=== PATIENT | male | born 1965 | race Caucasian/White ===

== ENCOUNTER 2019-06-12 16:00 | Inpatient (IN) | payer OTHER ==
[~2019-06-12] VITALS: Ht 177.8 cm; Wt 73.3 kg
--- NOTE | 2019-06-12 16:09 | NUR ---
KALYAN PATEL FROM [facility] PT HAD PROSTATE REMOVED THREE MO AGO DO TO [facility] HE HAS NOT BEEN HAPPY WITH [facility] SINCE AND TODAY CO PAIN AND SWELLING IN THE L LOWER ABD AND GROIN THAT STARTED 3 DAYS AGO DOES REPORT A FEVER DENIES OTHER HX OR TAKING ANY MEDS WAS MEDICATED TAX INVESTIGATOR W 1 DILAUDID AND 50 FENT X 2 ENROUTE IV R ARM TAX INVESTIGATOR
--- NOTE | 2019-06-12 16:45 | NUR ---
ERP TO THE BS
--- NOTE | 2019-06-12 17:29 | NUR ---
WAITINING ON ORDERS
[2019-06-12] MEDS ORDERED: SODIUM CHLORIDE 0.9% 1,000 ML IV ONE (17:46)
[2019-06-12] MEDS ORDERED: SODIUM CHLORIDE FLUSH 10ML SYR IVF PRN (18:00)
[2019-06-12] MEDS: PLEASE ENTER ALLERGIES MC SCH ×2 (18:17→18:18)
[2019-06-12] MEDS ORDERED: PIPERACILLIN/TAZO/PMX 3.375GM 50 ML ONE (18:21)
[2019-06-12] MEDS: SODIUM CHLORIDE 0.9% 1,000 ML IV SCH (18:26)
[2019-06-12] MEDS ORDERED: ONDANSETRON 2MG/ML, 2ML IVPush PRN (18:30)
[2019-06-12] MEDS ORDERED: BISACODYL 10 MG SUPP PR PRN (18:30)
[2019-06-12] MEDS ORDERED: ACETAMINOPHEN 325 MG TABLET PO PRN (18:30)
[2019-06-12] MEDS ORDERED: VANCOMYCIN PER PHARMACY MC PRN (18:30)
[2019-06-12] MEDS ORDERED: POLYETHYLENE GLYCOL 17 GM PACKET PO PRN (18:30)
[2019-06-12] MEDS: PIPERACILLIN/TAZO/PMX 3.375GM 50 ML IV SCH (18:42)
--- NOTE | 2019-06-12 18:55 | NUR ---
REPORT REC, VS UPDATED
[2019-06-12] MEDS ORDERED: VANCOMYCIN 1,500 MG in SODIUM CHLORIDE 0.9% 250 ML IV ONE (19:30)
[2019-06-12] MEDS ORDERED: PHARMACOKINETIC MONITORING MC PRN (19:30)
[2019-06-12] MEDS ORDERED: PHARMACOKINETIC CONSULTATION MC ONE (19:30)
[2019-06-12 19:50] VITALS: BP 127/72
[2019-06-12] MEDS: morphine SULFATE 10 MG/ML, 1ML IVPush PRN (20:43)
[2019-06-12] MEDS: NICOTINE 21 MG/24 HR PATCH.TD24 TD SCH (20:43)
[2019-06-13] MEDS: PIPERACILLIN/TAZO/PMX 3.375GM 50 ML IV SCH ×4 (00:36→19:50)
[2019-06-13] MEDS: morphine SULFATE 10 MG/ML, 1ML IVPush PRN ×4 (00:36→19:50)
[2019-06-13 01:05] VITALS: BP 106/73
[2019-06-13] MEDS: SODIUM CHLORIDE 0.9% 1,000 ML IV SCH ×2 (03:47→21:30)
[2019-06-13 06:41] LABS: MEAN CORPUSCULAR HEMOGLOBIN 31.3 pg (27.5-34.5); MEAN CORPUSCULAR HGB CONC 33.6 g/dL (33.2-36.2); MEAN PLATELET VOLUME 8.1 fL (7.4-10.4); PLATELET COUNT 187 x10^3/uL (130-400); RED BLOOD COUNT 4.12 x10^6/uL (4.38-5.82); RED CELL DISTRIBUTION WIDTH 12.7 % (9.4-14.8)
[2019-06-13 06:51] LABS: ALBUMIN 2.1 g/dL (3.4-5.0); ANION GAP 8 mmol/L (5-15); CALCIUM 7.9 mg/dL (8.5-10.1); CHLORIDE 103 mmol/L (98-107)
[2019-06-13 06:54] LABS: ALANINE AMINOTRANSFERASE 29 U/L (12-78); ALKALINE PHOSPHATASE 71 U/L (45-117); BILIRUBIN,TOTAL 0.6 mg/dL (0.2-1.0); CREATININE 0.91 mg/dL (0.7-1.3); TOTAL PROTEIN 6.3 g/dL (6.4-8.2)
[2019-06-13 07:23] LABS: BASOPHILS # (AUTO) 0.01 x10^3/uL (0-0.1); BASOPHILS % (AUTO) 0 % (0-1); EOSINOPHILS # (AUTO) 0.15 x10^3/uL (0-0.4); EOSINOPHILS % (AUTO) 1 % (1-7); LYMPHOCYTES # (AUTO) 0.67 x10^3/uL (1-3.4); LYMPHOCYTES % (AUTO) 3 % (22-44); MD SCAN; MONOCYTES # (AUTO) 1.54 x10^3/uL (0.2-0.8); MONOCYTES % (AUTO) 8 % (2-9); NEUTROPHILS # (AUTO) 17.53 x10^3/uL (1.8-6.8); NEUTROPHILS % (AUTO) 88 % (42-75)
[2019-06-13 07:29] VITALS: BP 107/63
[2019-06-13] MEDS ORDERED: FLUMAZENIL 0.1 MG/1 ML, 5ML ONE (08:04)
[2019-06-13] MEDS ORDERED: NALOXONE 1 MG/ML, 2ML ONE (08:04)
[2019-06-13] MEDS ORDERED: MIDAZOLAM 1 MG/ML, 5ML ONE ×2 (08:04)
[2019-06-13] MEDS ORDERED: FENTANYL PF 100 MCG/2ML ONE (08:04)
[2019-06-13] MEDS ORDERED: LIDOCAINE 1%, 20ML ONE (08:09)
[2019-06-13] MEDS: SENNA/DOCUSATE TABLET PO SCH (09:00)
[2019-06-13] MEDS: POTASSIUM CHLORIDE 20 MEQ TAB.ER.PRT PO SCH ×2 (09:39→19:49)
[2019-06-13] MEDS: VANCOMYCIN 1,500 MG in SODIUM CHLORIDE 0.9% 250 ML IV SCH (14:28)
[2019-06-13 15:27] VITALS: BP 118/77
[2019-06-13 19:34] VITALS: BP 111/68
[2019-06-13] MEDS: NICOTINE 21 MG/24 HR PATCH.TD24 TD SCH (19:49)
[2019-06-13] MEDS: HEPARIN 5,000 UNITS/ML, 1ML SQ SCH (19:55)
[2019-06-14] MEDS: morphine SULFATE 10 MG/ML, 1ML IVPush PRN ×4 (00:45→12:11)
[2019-06-14] MEDS: PIPERACILLIN/TAZO/PMX 3.375GM 50 ML IV SCH ×4 (01:29→19:56)
[2019-06-14 01:47] VITALS: BP 109/66
[2019-06-14] MEDS: HEPARIN 5,000 UNITS/ML, 1ML SQ SCH ×3 (04:32→21:00)
[2019-06-14] MEDS: SODIUM CHLORIDE 0.9% 1,000 ML IV SCH ×2 (05:38→17:22)
[2019-06-14 06:07] LABS: ANION GAP 7 mmol/L (5-15); CALCIUM 8.1 mg/dL (8.5-10.1); CHLORIDE 106 mmol/L (98-107)
[2019-06-14 06:09] LABS: BASOPHILS # (AUTO) 0.02 x10^3/uL (0-0.1); BASOPHILS % (AUTO) 0 % (0-1); EOSINOPHILS # (AUTO) 0.09 x10^3/uL (0-0.4); EOSINOPHILS % (AUTO) 1 % (1-7); LYMPHOCYTES # (AUTO) 0.66 x10^3/uL (1-3.4); LYMPHOCYTES % (AUTO) 7 % (22-44); MD NO; MEAN CORPUSCULAR HEMOGLOBIN 30.9 pg (27.5-34.5); MEAN CORPUSCULAR HGB CONC 33.3 g/dL (33.2-36.2); MEAN CORPUSCULAR VOLUME 92.8 fL (81-97); MEAN PLATELET VOLUME 7.5 fL (7.4-10.4); MONOCYTES # (AUTO) 1.04 x10^3/uL (0.2-0.8); MONOCYTES % (AUTO) 11 % (2-9); NEUTROPHILS # (AUTO) 7.36 x10^3/uL (1.8-6.8); NEUTROPHILS % (AUTO) 80 % (42-75); PLATELET COUNT 201 x10^3/uL (130-400); RED BLOOD COUNT 4.05 x10^6/uL (4.38-5.82); RED CELL DISTRIBUTION WIDTH 12.9 % (9.4-14.8)
[2019-06-14 06:12] LABS: CREATININE 0.82 mg/dL (0.7-1.3)
[2019-06-14 06:13] LABS: ALANINE AMINOTRANSFERASE 65 U/L (12-78); ALKALINE PHOSPHATASE 75 U/L (45-117); BILIRUBIN,TOTAL 0.4 mg/dL (0.2-1.0); TOTAL PROTEIN 6.2 g/dL (6.4-8.2)
[2019-06-14] MEDS: POTASSIUM CHLORIDE 20 MEQ TAB.ER.PRT PO SCH ×2 (07:48→17:22)
[2019-06-14] MEDS: SENNA/DOCUSATE TABLET PO SCH (07:48)
[2019-06-14 08:50] VITALS: BP 115/74
[2019-06-14] MEDS: VANCOMYCIN 1,500 MG in SODIUM CHLORIDE 0.9% 250 ML IV SCH (09:07)
[2019-06-14 15:55] VITALS: BP 129/73
[2019-06-14] MEDS: NICOTINE 21 MG/24 HR PATCH.TD24 TD SCH (19:29)
[2019-06-14 19:58] VITALS: BP 113/64
[2019-06-15] MEDS: PIPERACILLIN/TAZO/PMX 3.375GM 50 ML IV SCH (02:12)
[2019-06-15] MEDS: morphine SULFATE 10 MG/ML, 1ML IVPush PRN ×2 (02:20→19:29)
[2019-06-15 02:55] VITALS: BP 125/70
[2019-06-15] MEDS: VANCOMYCIN 1,500 MG in SODIUM CHLORIDE 0.9% 250 ML IV SCH (03:39)
[2019-06-15] MEDS: HEPARIN 5,000 UNITS/ML, 1ML SQ SCH ×4 (03:41→23:52)
[2019-06-15] MEDS: SODIUM CHLORIDE 0.9% 1,000 ML IV SCH (07:22)
[2019-06-15 07:30] VITALS: BP 129/64
[2019-06-15] MEDS: AMPICILLIN/SULBACTAM 3 GM in SODIUM CHLORIDE 0.9% 100 ML IV SCH ×3 (08:00→19:02)
[2019-06-15] MEDS: POTASSIUM CHLORIDE 20 MEQ TAB.ER.PRT PO SCH ×2 (08:12→08:13)
[2019-06-15] MEDS: SENNA/DOCUSATE TABLET PO SCH (08:12)
[2019-06-15 13:07] VITALS: BP 122/68
[2019-06-15] MEDS: NICOTINE 21 MG/24 HR PATCH.TD24 TD SCH (18:35)
[2019-06-15 18:44] VITALS: BP 126/69
[2019-06-16 02:04] VITALS: BP 132/70
[2019-06-16] MEDS: AMPICILLIN/SULBACTAM 3 GM in SODIUM CHLORIDE 0.9% 100 ML IV SCH ×4 (02:06→21:18)
[2019-06-16] MEDS: morphine SULFATE 10 MG/ML, 1ML IVPush PRN (03:01)
[2019-06-16 05:53] LABS: BASOPHILS # (AUTO) 0.03 x10^3/uL (0-0.1); BASOPHILS % (AUTO) 0 % (0-1); EOSINOPHILS # (AUTO) 0.12 x10^3/uL (0-0.4); EOSINOPHILS % (AUTO) 1 % (1-7); LYMPHOCYTES # (AUTO) 0.94 x10^3/uL (1-3.4); LYMPHOCYTES % (AUTO) 9 % (22-44); MD NO; MEAN CORPUSCULAR HEMOGLOBIN 30.8 pg (27.5-34.5); MEAN CORPUSCULAR HGB CONC 33.5 g/dL (33.2-36.2); MEAN CORPUSCULAR VOLUME 91.9 fL (81-97); MEAN PLATELET VOLUME 7.7 fL (7.4-10.4); MONOCYTES % (AUTO) 12 % (2-9); NEUTROPHILS # (AUTO) 8.42 x10^3/uL (1.8-6.8); NEUTROPHILS % (AUTO) 78 % (42-75); PLATELET COUNT 326 x10^3/uL (130-400); RED BLOOD COUNT 4.09 x10^6/uL (4.38-5.82); RED CELL DISTRIBUTION WIDTH 12.8 % (9.4-14.8)
[2019-06-16 06:00] LABS: ALBUMIN 2.2 g/dL (3.4-5.0); ANION GAP 7 mmol/L (5-15); CALCIUM 8.4 mg/dL (8.5-10.1); CHLORIDE 103 mmol/L (98-107)
[2019-06-16 06:05] LABS: ALANINE AMINOTRANSFERASE 75 U/L (12-78); ALKALINE PHOSPHATASE 81 U/L (45-117); BILIRUBIN,TOTAL 0.6 mg/dL (0.2-1.0); CREATININE 0.82 mg/dL (0.7-1.3); TOTAL PROTEIN 6.4 g/dL (6.4-8.2)
[2019-06-16 06:35] VITALS: BP 128/62
[2019-06-16] MEDS: SENNA/DOCUSATE TABLET PO SCH (08:05)
[2019-06-16] MEDS: HEPARIN 5,000 UNITS/ML, 1ML SQ SCH ×2 (12:48→21:00)
[2019-06-16 13:17] VITALS: BP 108/63
[2019-06-16 18:40] VITALS: BP 127/72
[2019-06-16] MEDS: NICOTINE 21 MG/24 HR PATCH.TD24 TD SCH (19:30)
[2019-06-17] MEDS: HEPARIN 5,000 UNITS/ML, 1ML SQ SCH ×3 (02:08→19:45)
[2019-06-17] MEDS: AMPICILLIN/SULBACTAM 3 GM in SODIUM CHLORIDE 0.9% 100 ML IV SCH ×4 (02:13→19:41)
[2019-06-17 02:22] VITALS: BP 130/70
[2019-06-17] MEDS: OXYcodone/APAP 5/325MG TABLET PO PRN ×4 (02:23→19:50)
[2019-06-17 07:04] VITALS: BP 115/73
[2019-06-17] MEDS: SENNA/DOCUSATE TABLET PO SCH (07:59)
[2019-06-17 13:01] VITALS: BP 119/76
[2019-06-17 19:27] VITALS: BP 107/66
[2019-06-17] MEDS: NICOTINE 21 MG/24 HR PATCH.TD24 TD SCH (19:30)
[2019-06-18] MEDS: AMPICILLIN/SULBACTAM 3 GM in SODIUM CHLORIDE 0.9% 100 ML IV SCH ×3 (01:57→13:59)
[2019-06-18 02:03] VITALS: BP 144/78
[2019-06-18] MEDS: OXYcodone/APAP 5/325MG TABLET PO PRN ×4 (02:07→21:51)
[2019-06-18] MEDS: HEPARIN 5,000 UNITS/ML, 1ML SQ SCH ×3 (03:54→19:23)
[2019-06-18 06:58] VITALS: BP 110/60
[2019-06-18] MEDS: SENNA/DOCUSATE TABLET PO SCH (07:59)
[2019-06-18 12:48] VITALS: BP 131/81
[2019-06-18] MEDS: metroNIDAZOLE 500 MG TABLET PO SCH (17:50)
[2019-06-18] MEDS: NICOTINE 21 MG/24 HR PATCH.TD24 TD SCH (19:06)
[2019-06-18 19:34] VITALS: BP 117/70
[2019-06-18] MEDS ORDERED: AMPICILLIN/SULBACTAM 3 GM in SODIUM CHLORIDE 0.9% 100 ML IV ONE (21:00)
[2019-06-19] MEDS: metroNIDAZOLE 500 MG TABLET PO SCH ×3 (01:45→17:08)
[2019-06-19] MEDS: OXYcodone/APAP 5/325MG TABLET PO PRN ×3 (01:53→17:09)
[2019-06-19 02:08] VITALS: BP 116/68
[2019-06-19] MEDS: HEPARIN 5,000 UNITS/ML, 1ML SQ SCH ×3 (04:49→21:00)
[2019-06-19 06:08] LABS: HCT (SEDRATE) 41.1 % (39.2-51.8)
[2019-06-19 08:00] VITALS: BP 130/71
[2019-06-19] MEDS: SENNA/DOCUSATE TABLET PO SCH (09:00)
[2019-06-19] MEDS: CEFTRIAXONE PMX 2GM/50ML 50 ML IV SCH (09:24)
[2019-06-19 15:08] VITALS: BP 120/68
[2019-06-19] MEDS: NICOTINE 21 MG/24 HR PATCH.TD24 TD SCH (16:33)
[2019-06-19] MEDS ORDERED: OMNIPAQUE 350 MG/ML, 100ML BOTTLE ONE (17:00)
[2019-06-19 19:21] VITALS: BP 122/66
[2019-06-20 00:13] VITALS: BP 135/76
[2019-06-20] MEDS: OXYcodone/APAP 5/325MG TABLET PO PRN ×4 (01:46→19:39)
[2019-06-20] MEDS: metroNIDAZOLE 500 MG TABLET PO SCH ×3 (01:46→16:47)
[2019-06-20] MEDS: HEPARIN 5,000 UNITS/ML, 1ML SQ SCH ×3 (05:00→21:00)
[2019-06-20] MEDS: SENNA/DOCUSATE TABLET PO SCH (07:20)
[2019-06-20 08:05] VITALS: BP 115/63
[2019-06-20] MEDS: CEFTRIAXONE PMX 2GM/50ML 50 ML IV SCH (08:45)
[2019-06-20 12:04] VITALS: BP 106/72
[2019-06-20] MEDS ORDERED: LIDOCAINE 1%, 20ML ONE (13:40)
[2019-06-20] MEDS ORDERED: FLUMAZENIL 0.1 MG/1 ML, 5ML ONE (14:31)
[2019-06-20] MEDS ORDERED: FENTANYL PF 100 MCG/2ML ONE (14:31)
[2019-06-20] MEDS ORDERED: MIDAZOLAM 1 MG/ML, 5ML ONE (14:31)
[2019-06-20] MEDS ORDERED: NALOXONE 1 MG/ML, 2ML ONE (14:32)
[2019-06-20] MEDS ORDERED: VISIPAQUE 270 MG/ML, 50ML BOTTLE ONE (15:37)
[2019-06-20] MEDS: MORPHINE SULFATE 4 MG/ML, 1ML IVPush PRN ×2 (16:02→23:13)
[2019-06-20] MEDS: NICOTINE 21 MG/24 HR PATCH.TD24 TD SCH (16:48)
[2019-06-20 19:26] VITALS: BP 103/64
[2019-06-21] MEDS: metroNIDAZOLE 500 MG TABLET PO SCH ×3 (01:46→17:48)
[2019-06-21] MEDS: OXYcodone/APAP 5/325MG TABLET PO PRN ×4 (01:47→23:38)
[2019-06-21 02:00] VITALS: BP 122/65
[2019-06-21] MEDS: HEPARIN 5,000 UNITS/ML, 1ML SQ SCH ×3 (04:07→19:59)
[2019-06-21 05:37] LABS: ALANINE AMINOTRANSFERASE 39 U/L (12-78); ALBUMIN 2.5 g/dL (3.4-5.0); ANION GAP 7 mmol/L (5-15); CALCIUM 8.8 mg/dL (8.5-10.1); CHLORIDE 100 mmol/L (98-107); CREATININE 0.99 mg/dL (0.7-1.3)
[2019-06-21 05:39] LABS: ALKALINE PHOSPHATASE 81 U/L (45-117); BILIRUBIN,TOTAL 0.3 mg/dL (0.2-1.0); TOTAL PROTEIN 7.5 g/dL (6.4-8.2)
[2019-06-21 06:38] VITALS: BP 107/66
[2019-06-21 06:42] LABS: MD YES; MEAN CORPUSCULAR HEMOGLOBIN 30.8 pg (27.5-34.5); MEAN CORPUSCULAR HGB CONC 32.9 g/dL (33.2-36.2); MEAN CORPUSCULAR VOLUME 93.7 fL (81-97); MEAN PLATELET VOLUME 7.2 fL (7.4-10.4); PLATELET COUNT 656 x10^3/uL (130-400); RED BLOOD COUNT 4.46 x10^6/uL (4.38-5.82); RED CELL DISTRIBUTION WIDTH 12.8 % (9.4-14.8)
[2019-06-21 06:44] LABS: EOS#(MANUAL) 0.23 x10^3/uL (0.0-0.4); EOS% (MANUAL) 2 % (1-7); LYMPH#(MANUAL) 1.47 x10^3/uL (1-3.4); LYMPHS% (MANUAL) 13 % (22-44); MONOS#(MANUAL) 1.58 x10^3/uL (0.3-2.7); MONOS% (MANUAL) 14 % (2-9); SEG#(MANUAL) 8.02 x10^3/uL (1.8-6.8); SEGS% (MANUAL) 71 % (42-75)
[2019-06-21 06:45] LABS: <PLATELET ESTIMATE> INCREASED; ANISOCYTOSIS 1+
[2019-06-21 06:46] LABS: <PLT MORPHOLOGY> NORMAL PLT MORPH
[2019-06-21] MEDS: MORPHINE SULFATE 4 MG/ML, 1ML IVPush PRN ×3 (08:46→21:20)
[2019-06-21] MEDS: CEFTRIAXONE PMX 2GM/50ML 50 ML IV SCH (08:46)
[2019-06-21] MEDS: SENNA/DOCUSATE TABLET PO SCH (08:47)
[2019-06-21 13:47] VITALS: BP 103/68
[2019-06-21 18:55] VITALS: BP 121/74
[2019-06-21] MEDS: NICOTINE 21 MG/24 HR PATCH.TD24 TD SCH (19:30)
[2019-06-22 00:17] VITALS: BP 106/67
[2019-06-22] MEDS: metroNIDAZOLE 500 MG TABLET PO SCH ×3 (02:00→17:43)
[2019-06-22] MEDS: MORPHINE SULFATE 4 MG/ML, 1ML IVPush PRN ×4 (03:57→21:27)
[2019-06-22] MEDS: HEPARIN 5,000 UNITS/ML, 1ML SQ SCH ×3 (04:33→21:00)
[2019-06-22 04:37] LABS: BASOPHILS # (AUTO) 0.05 x10^3/uL (0-0.1); BASOPHILS % (AUTO) 1 % (0-1); EOSINOPHILS # (AUTO) 0.31 x10^3/uL (0-0.4); EOSINOPHILS % (AUTO) 3 % (1-7); LYMPHOCYTES # (AUTO) 1.35 x10^3/uL (1-3.4); LYMPHOCYTES % (AUTO) 14 % (22-44); MD NO; MEAN CORPUSCULAR HEMOGLOBIN 30.7 pg (27.5-34.5); MEAN CORPUSCULAR VOLUME 93.2 fL (81-97); MEAN PLATELET VOLUME 7.3 fL (7.4-10.4); MONOCYTES # (AUTO) 1.14 x10^3/uL (0.2-0.8); MONOCYTES % (AUTO) 12 % (2-9); NEUTROPHILS # (AUTO) 6.55 x10^3/uL (1.8-6.8); NEUTROPHILS % (AUTO) 70 % (42-75); PLATELET COUNT 648 x10^3/uL (130-400); RED BLOOD COUNT 4.54 x10^6/uL (4.38-5.82); RED CELL DISTRIBUTION WIDTH 12.9 % (9.4-14.8)
[2019-06-22 04:51] LABS: ANION GAP 7 mmol/L (5-15); CHLORIDE 102 mmol/L (98-107)
[2019-06-22 04:53] LABS: CREATININE 0.98 mg/dL (0.7-1.3)
[2019-06-22 06:50] VITALS: BP 107/69
[2019-06-22] MEDS: SENNA/DOCUSATE TABLET PO SCH (09:12)
[2019-06-22] MEDS: CEFTRIAXONE PMX 2GM/50ML 50 ML IV SCH (09:12)
[2019-06-22] MEDS: OXYcodone/APAP 5/325MG TABLET PO PRN ×3 (12:47→23:55)
[2019-06-22 12:49] VITALS: BP 109/72
[2019-06-22] MEDS: NICOTINE 21 MG/24 HR PATCH.TD24 TD SCH (16:55)
[2019-06-22 19:28] VITALS: BP 108/72
[2019-06-23 01:38] VITALS: BP 113/69
[2019-06-23] MEDS: metroNIDAZOLE 500 MG TABLET PO SCH ×2 (01:38→08:20)
[2019-06-23] MEDS: HEPARIN 5,000 UNITS/ML, 1ML SQ SCH ×2 (04:56→12:26)
[2019-06-23] MEDS: MORPHINE SULFATE 4 MG/ML, 1ML IVPush PRN ×2 (04:57→12:39)
[2019-06-23 05:36] LABS: BASOPHILS # (AUTO) 0.04 x10^3/uL (0-0.1); BASOPHILS % (AUTO) 0 % (0-1); EOSINOPHILS % (AUTO) 2 % (1-7); HCT (SEDRATE) 41.9 % (39.2-51.8); LYMPHOCYTES # (AUTO) 1.42 x10^3/uL (1-3.4); LYMPHOCYTES % (AUTO) 15 % (22-44); MD NO; MEAN CORPUSCULAR HEMOGLOBIN 30.8 pg (27.5-34.5); MEAN CORPUSCULAR HGB CONC 32.8 g/dL (33.2-36.2); MEAN CORPUSCULAR VOLUME 93.8 fL (81-97); MONOCYTES # (AUTO) 1.19 x10^3/uL (0.2-0.8); MONOCYTES % (AUTO) 13 % (2-9); NEUTROPHILS # (AUTO) 6.47 x10^3/uL (1.8-6.8); NEUTROPHILS % (AUTO) 69 % (42-75); PLATELET COUNT 603 x10^3/uL (130-400); RED BLOOD COUNT 4.54 x10^6/uL (4.38-5.82); RED CELL DISTRIBUTION WIDTH 12.7 % (9.4-14.8)
[2019-06-23 05:40] LABS: ALANINE AMINOTRANSFERASE 37 U/L (12-78); ALBUMIN 2.6 g/dL (3.4-5.0); ANION GAP 5 mmol/L (5-15); CALCIUM 9.1 mg/dL (8.5-10.1); CHLORIDE 101 mmol/L (98-107)
[2019-06-23 05:51] LABS: ALKALINE PHOSPHATASE 76 U/L (45-117); BILIRUBIN,TOTAL 0.4 mg/dL (0.2-1.0); CREATININE 0.88 mg/dL (0.7-1.3); TOTAL PROTEIN 7.7 g/dL (6.4-8.2)
[2019-06-23 06:46] VITALS: BP 107/63
[2019-06-23] MEDS: OXYcodone/APAP 5/325MG TABLET PO PRN (08:20)
[2019-06-23] MEDS: CEFTRIAXONE PMX 2GM/50ML 50 ML IV SCH (08:21)
[2019-06-23] MEDS: SENNA/DOCUSATE TABLET PO SCH (08:22)
[2019-06-23] MEDS ORDERED: CEFT2FRO2 IV (09:29)
[2019-06-23] MEDS ORDERED: SENN-193 PO (09:29)
[2019-06-23] MEDS ORDERED: METR500T PO (09:29)
[2019-06-23] MEDS ORDERED: OXYC-302 PO (10:52)
[2019-06-23 12:37] VITALS: BP 119/74
== END 2019-06-23 15:14 | disposition home or self-care (01) | DRG 871 ==
LOC: ED 17:45 → EDIP 17:46 → ED 18:03 → 3N 19:40
PROVIDERS: ADMIT Internal Medicine; ATTEND Internal Medicine
PROC: 0W9H30Z Drainage of Retroperitoneum with Drainage Device, Percutaneous Approach (ICD-10-PCS; principal; 2019-06-13)
PROC: 0W2JX0Z Change Drainage Device in Pelvic Cavity, External Approach (ICD-10-PCS; 2019-06-20)
PROC: 02HV33Z Insertion of Infusion Device into Superior Vena Cava, Percutaneous Approach (ICD-10-PCS; 2019-06-21)
PROC: B5181ZA Fluoroscopy of Superior Vena Cava using Low Osmolar Contrast, Guidance (ICD-10-PCS; 2019-06-21)
DX: A40.9 Streptococcal sepsis, unspecified (principal); K65.1 Peritoneal abscess; E87.1 Hypo-osmolality and hyponatremia; E87.6 Hypokalemia; F17.210 Nicotine dependence, cigarettes, uncomplicated; Z85.46 Personal history of malignant neoplasm of prostate; Z90.79 Acquired absence of other genital organ(s)
CPT/HCPCS: 36415; 75984; 75989; 99285; J3490; 36573; 49406; 49423; 74177; 80048; 80053; 80202; 85025; 85651; 86140; 87040; 87070; 87075; 87147; 87205; 99156; 99157; C1894; G0378; J0295; J0696; J2250; J2543; J3010; J3370; Q9966; Q9967; C1729; C1751; C1769; J2270; J2310; J7030; J7050